=== PATIENT | female | born 1960 | race Caucasian/White ===

== ENCOUNTER 2018-09-11 09:39 | Outpatient (REF) | payer BC, SELFPAY ==
[2018-09-11 13:59] LABS: ALT 29 U/L (12-78); AST 25 U/L (15-37); Albumin 4.5 g/dL (3.4-5.0); Alkaline Phosphatase 77 U/L (46-116); Anion Gap 9.8 mmol/L (3-11); BUN 27 mg/dL (7-18); Bilirubin, Total 0.5 mg/dL (0.2-1.0); CO2 29.2 mmol/L (21.0-32.0); CREATININE 0.85 mg/dL (0.55-1.02); Calcium 9.3 mg/dL (8.5-10.1); Chloride 101 mmol/L (98-107); Cholesterol 224 mg/dL (50-200); Glucose 81 mg/dL (70-100); HDL Cholesterol 78 mg/dL (40-60); LDL CHOLESTEROL 135 mg/dL (<100); Potassium 4.3 mmol/L (3.5-5.1); Sodium 140 mmol/L (136-145); Total Protein 7.4 g/dL (6.4-8.2); Triglyceride 44 mg/dL (30-150)
== END 2018-09-11 09:59 ==
LOC: NCHCN 09:39
PROVIDERS: PCP Family Medicine; Visit Provider Family Medicine
DX: Z00.00 Encounter for general adult medical examination without abnormal findings (principal); E78.5 Hyperlipidemia, unspecified; Z78.0 Asymptomatic menopausal state
CPT/HCPCS: 80053; 80061; 83721

== ENCOUNTER 2019-04-06 00:53 | Outpatient (CLI) | payer BC, SELFPAY ==
--- NOTE | 2019-04-06 16:15 | DI.MAMMO_ITS ---
SYMPTOM/DIAGNOSIS: SCREENING, Z12.31 MAMMOGRAMS: Mammograms were interpreted according to the usual protocol including computer analysis with CAD system, tomosynthesis and C view imaging. The breast tissue is of moderate radiodensity. There is no evidence of a mass. There are no suspicious calcifications. There has been no significant interval change and no evidence of malignancy. Category 1. Yearly screening mammography is recommended. IMPRESSION: Category 1, yearly screening mammography is recommended. Breast density, Category B. MQSA ASSESSMENT OF FINDINGS: Negative. Category 1. Patient will receive a letter notifying them of these results. BI-RADS category B. There are scattered areas of fibroglandular density.
== END 2019-04-06 01:13 ==
PROVIDERS: PCP Family Medicine; Visit Provider Nurse Practitioner Family
DX: Z12.31 Encounter for screening mammogram for malignant neoplasm of breast (principal)
CPT/HCPCS: 77063; 77067

== ENCOUNTER 2019-08-26 09:08 | Outpatient (REF) | payer BC, SELFPAY ==
[2019-08-26 11:53] LABS: ALT 26 U/L (14-59); AST 22 U/L (15-37); Albumin 4.3 g/dL (3.4-5.0); Alkaline Phosphatase 72 U/L (46-116); Anion Gap 10.7 mmol/L (3-11); BUN 33 mg/dL (7-18); Bilirubin, Total 0.4 mg/dL (0.2-1.0); CO2 27.3 mmol/L (21.0-32.0); CREATININE 0.87 mg/dL (0.55-1.02); Calculated LDL 184 mg/dL; Chloride 104 mmol/L (98-107); Cholesterol 271 mg/dL (<200); Glucose 71 mg/dL (74-106); HDL Cholesterol 81 mg/dL (40-60); Potassium 4.3 mmol/L (3.5-5.1); Sodium 142 mmol/L (136-145); Total Protein 7.4 g/dL (6.4-8.2); Triglyceride 34 mg/dL (<150)
== END 2019-08-26 09:28 ==
LOC: NCHCN 09:08
PROVIDERS: PCP Family Medicine; Visit Provider Family Medicine
DX: E78.5 Hyperlipidemia, unspecified (principal); Z00.00 Encounter for general adult medical examination without abnormal findings; Z78.0 Asymptomatic menopausal state
CPT/HCPCS: 80053; 80061

== ENCOUNTER 2019-12-06 14:25 | Outpatient (REF) | payer BC, SELFPAY ==
--- NOTE | 2019-12-06 13:00 | PAPFT_PTH ---
PATIENT: Jennifer Hurley LOC: [facility] U#:[id number] AGE/SX: 59/F ROOM: RE12/06/[address]: JOAQUIN Diaz : 1960 BED: DIS: 12/06/2019 SPEC #: [id number] RECD: 12/06/19 17:43 STATUS: TOMAS REQ #: [id number] BOAZ: 12/06/19 13:[address]: Verena Wade DEPT: [facility] Cytology RECD BY: Miriam Gonzalez ENTERED: 12/06/19 17:43 SP TYPE: PAPFT OTHR DR: Olinda Mukherjee Tissues: 1 - CX/ENDOCX FOR PAP SMEARS Procedures: PAP THIN PREP/UVM Screening HPV DNA PROBE Comments: [id number]
== END 2019-12-06 14:45 ==
LOC: LBN 14:25
PROVIDERS: PCP Family Medicine; Visit Provider Nurse Practitioner Family
DX: Z12.4 Encounter for screening for malignant neoplasm of cervix (principal); Z11.51 Encounter for screening for human papillomavirus (HPV)
CPT/HCPCS: 88142; 87624

== ENCOUNTER 2020-04-07 03:46 | Outpatient (CLI) | payer BC, SELFPAY ==
--- NOTE | 2020-04-07 09:00 | DI.MAMMO_ITS ---
EXAM: MG MAMMO SCREENING CLINICAL HISTORY: screening,Z12.39 TECHNIQUE: Mammograms were interpreted according to the usual protocol including computer analysis w [employer] CAD system, tomosynthesis and C-view imaging. COMPARISON: FINDINGS: The breasts are of moderate density with fairly symmetrical distribution of fibroglandular tissue. N o dominant mass or clumped microcalcification is identified in either breast. The current examinatio n is compared with previous examinations including March 2019 and there has been no gross interval jordi nge in appearance comparison previous studies. IMPRESSION: No specific evidence of malignancy at this time. Routine screening examinations are suggested at yea rly intervals in this age group according to the ACS ACR guidelines. BI-RADS Category 1 - Negative Breast Density - Category B - Scattered areas of fibroglandular density
== END 2020-04-07 04:06 ==
PROVIDERS: PCP Family Medicine; Visit Provider Nurse Practitioner Family
DX: Z12.39 Encounter for other screening for malignant neoplasm of breast (principal); R92.2 Inconclusive mammogram
CPT/HCPCS: 77063; 77067

== ENCOUNTER 2020-05-03 09:33 | Outpatient (CLI) | payer BC, SELFPAY ==
--- NOTE | 2020-05-03 15:10 | DI.RAD_ITS ---
EXAM: XR WRIST LT COMPLETE CLINICAL HISTORY: tenosynovits. TECHNIQUE: 2D digital imaging was performed. COMPARISON: No exams were available for comparison FINDINGS: BONES: No acute fracture is present. No bony destructive lesion is seen. JOINTS: The carpal bones are normally aligned. SOFT TISSUE: Normal. IMPRESSION: Unremarkable radiographs of the left wrist. DATA REPOSITORY: RADIATION DOSE DELIVERED:
== END 2020-05-03 09:53 ==
PROVIDERS: PCP Family Medicine; Visit Provider Student in an Organized Health Care Education/Training Program
DX: M65.842 Other synovitis and tenosynovitis, left hand (principal)
CPT/HCPCS: 73110

== ENCOUNTER 2020-09-04 12:46 | Outpatient (REF) | payer BC, SELFPAY ==
[2020-09-04 21:23] LABS: HCT 38.9 % (36.0-46.0); HGB 12.5 g/dL (11.2-15.7); MCH 32.1 pg (27.0-33.0); MCHC 32.1 % (32.0-36.0); MCV 99.7 fL (80-95); MPV 12.1 fL (8.0-11.0); Platelet Count 237 10^3/uL (130-400); RDW 12.4 % (11.7-14.6); RDW-SD 45.8 fL
[2020-09-04 21:53] LABS: ALT 33 U/L (14-59); AST 32 U/L (15-37); Albumin 4.4 g/dL (3.4-5.0); Alkaline Phosphatase 75 U/L (46-116); Anion Gap 8.1 mmol/L (3-11); BUN 27 mg/dL (7-18); Bilirubin, Total 0.5 mg/dL (0.2-1.0); CO2 28.9 mmol/L (21.0-32.0); CREATININE 0.94 mg/dL (0.55-1.02); Calcium 9.1 mg/dL (8.5-10.1); Calculated LDL 97 mg/dL (<100); Chloride 104 mmol/L (98-107); Cholesterol 175 mg/dL (<200); Glucose 88 mg/dL (74-106); HDL Cholesterol 69 mg/dL (40-60); Potassium 4.2 mmol/L (3.5-5.1); Sodium 141 mmol/L (136-145); Total Protein 7.1 g/dL (6.4-8.2); Triglyceride 47 mg/dL (<150)
== END 2020-09-04 13:06 ==
LOC: NCHCN 12:46
PROVIDERS: PCP Family Medicine; Visit Provider Family Medicine
DX: Z00.00 Encounter for general adult medical examination without abnormal findings (principal); E78.5 Hyperlipidemia, unspecified
CPT/HCPCS: 80053; 80061; 85027

== ENCOUNTER 2021-02-14 15:15 | Outpatient (CLI) | payer BC, SELFPAY ==
--- NOTE | 2021-02-14 14:48 | DI.RAD_ITS ---
Exam(s) XR WRIST LT LIMITED EXAM: XR WRIST LT LIMITED CLINICAL HISTORY: left wrist pain. TECHNIQUE: 2D digital imaging was performed. COMPARISON: CR XR WRIST LT COMPLETE from 05/03/2020 FINDINGS: There is no evidence of fracture or dislocation on this two view study Bone density is age-appropriate. No significant ulnar variance. No radiopaque foreign body IMPRESSION: No fracture evident on this two view study. DATA REPOSITORY: RADIATION DOSE DELIVERED:
== END 2021-02-14 15:16 | disposition home or self-care (01) ==
LOC: DIORS 15:16
PROVIDERS: PCP Family Medicine; Referring Provider Family Medicine; Visit Provider Student in an Organized Health Care Education/Training Program
DX: M25.532 Pain in left wrist (principal)
CPT/HCPCS: 73100

== ENCOUNTER 2021-04-09 01:22 | Outpatient (CLI) | payer BC, SELFPAY ==
--- NOTE | 2021-04-09 06:30 | DI.MAMMO_ITS ---
Exam(s) MAMMO SCREENING EXAM: MAMMO SCREENING CLINICAL HISTORY: screening,Z12.39. TECHNIQUE: Bilateral full field digital CC and MLO mammographic images were obtained with 3D tomosyn thesis and utilizing computer aided detection (CAD). COMPARISON: Prior mammograms dating back to 2011, the most recent being March 2020. FINDINGS: There are no CAD designations There are no new spiculated masses nor malignant appearing microcalcification groups. There is no significant architectural distortion nor skin thickening-retraction. IMPRESSION: No radiographic evidence of malignancy. BI-RADS Category 1 - Negative Breast Density - Category B - Scattered areas of fibroglandular density Breast density Category C or D implies that the patient has dense breast tissue. Dense breast tissue can make it harder to find cancer on a mammogram. Dense breast tissue is also associated with an incr eased risk of breast cancer. This information about the result of the mammogram report was provided to the patient to raise their awareness. Use this report when you speak with the patient about their risks for breast cancer, which includes their family history. At that time, you may recommend additional screening tests (Ultrasoun d or MRI) as these tests may add significant information. A negative radiographic report should not delay biopsy if a dominant or clinically suspicious mass is present. Up to ten percent of cancers are not identified on mammography. A negative report may reinforce clinical impression. Adenosis and dense breasts may obscure an underlying neoplasm. False positive reports average 6 to 10%. Patient will receive a letter notifying them of these results.
== END 2021-04-09 01:42 ==
PROVIDERS: PCP Family Medicine; Visit Provider Nurse Practitioner Family
DX: Z12.31 Encounter for screening mammogram for malignant neoplasm of breast (principal); R92.8 Other abnormal and inconclusive findings on diagnostic imaging of breast
CPT/HCPCS: 77063; 77067

== ENCOUNTER 2021-09-06 11:26 | Outpatient (REF) | payer BC, SELFPAY ==
[2021-09-06 15:03] LABS: ALT 31 U/L (14-59); AST 25 U/L (15-37); Albumin 4.5 g/dL (3.4-5.0); Alkaline Phosphatase 73 U/L (46-116); Anion Gap 8.3 mmol/L (3-11); BUN 21 mg/dL (7-18); Bilirubin, Total 0.5 mg/dL (0.2-1.0); CO2 28.7 mmol/L (21.0-32.0); CREATININE 0.8 mg/dL (0.55-1.02); Calcium 9.2 mg/dL (8.5-10.1); Calculated LDL 87 mg/dL (<100); Chloride 103 mmol/L (98-107); Cholesterol 168 mg/dL (<200); Glucose 86 mg/dL (74-106); HDL Cholesterol 72 mg/dL (40-60); Potassium 4.3 mmol/L (3.5-5.1); Sodium 140 mmol/L (136-145); Total Protein 7.4 g/dL (6.4-8.2); Triglyceride 48 mg/dL (<150)
== END 2021-09-06 11:27 | disposition home or self-care (01) ==
LOC: NCHCN 11:26
PROVIDERS: PCP Family Medicine; Visit Provider Family Medicine
DX: Z00.00 Encounter for general adult medical examination without abnormal findings (principal); E78.5 Hyperlipidemia, unspecified
CPT/HCPCS: 80053; 80061

== ENCOUNTER → 2022-04-10 00:11 | Outpatient (CLI) | payer BC, SELFPAY ==
--- NOTE | 2022-04-10 15:15 | DI.MAMMO_ITS ---
Exam(s) MAMMO SCREENING EXAM: MAMMO SCREENING CLINICAL HISTORY: screening TECHNIQUE: Mammograms were interpreted according to the usual protocol including computer analysis w [employer] CAD system, tomosynthesis and C-view imaging. COMPARISON: 2012 through 2020 FINDINGS: The breasts are composed of scattered fibroglandular densities, Breast Density category B. No suspicious masses or suspicious microcalcifications are seen. No skin thickening or abnormal axillary lymph nodes are seen. There has been no significant change from prior exams. IMPRESSION: BI-RADS Category 1, Negative mammogram Yearly screening mammography is recommended. Breast Density - Category B, scattered fibroglandular densities. A negative radiographic report should not delay biopsy if a dominant or clinically suspicious mass is present. Up to ten percent of cancers are not identified on mammography. A negative report may reinforce clinical impression. Adenosis and dense breasts may obscure an underlying neoplasm. False positive reports average 6 to 10%. Patient will receive a letter notifying them of these results.
== END ==
PROVIDERS: PCP Family Medicine; Visit Provider Nurse Practitioner Family
DX: Z12.31 Encounter for screening mammogram for malignant neoplasm of breast (principal); R92.8 Other abnormal and inconclusive findings on diagnostic imaging of breast
CPT/HCPCS: 77063; 77067

== ENCOUNTER 2022-09-30 10:47 | Outpatient (REF) | payer BC, SELFPAY ==
[2022-09-30 14:38] LABS: Glucose 87 mg/dL (74-106)
== END 2022-09-30 10:48 | disposition home or self-care (01) ==
LOC: NCHCN 10:47
PROVIDERS: PCP Family Medicine; Visit Provider Internal Medicine
DX: Z00.00 Encounter for general adult medical examination without abnormal findings (principal)
CPT/HCPCS: 82947

== ENCOUNTER 2023-02-10 09:18 | Outpatient (REF) | payer BC, SELFPAY ==
--- NOTE | 2023-02-10 08:45 | PAPFT_PTH ---
PATIENT: Jennifer Hurley LOC: [facility] U#:[id number] AGE/SX: 62/F ROOM: RE02/10/[address]: Celsa Ford NP : 1960 BED: DIS: 02/10/2023 SPEC #: [id number] RECD: 02/10/23 13:03 STATUS: TOMAS REQ #: [id number] BOAZ: 02/10/23 08:[address]: Celsa Ford NP DEPT: [facility] Cytology RECD BY: Miriam Gonzalez ENTERED: 02/10/23 13:03 SP TYPE: PAPFT OTHR DR: Olinda Mukherjee Tissues: 1 - CX/ENDOCX FOR PAP SMEARS Procedures: PAP THIN PREP/UVM Screening HPV DNA PROBE Comments: [id number]
== END 2023-02-10 09:19 | disposition home or self-care (01) ==
LOC: LBN 09:18
PROVIDERS: PCP Family Medicine; Visit Provider Nurse Practitioner Women's Health
DX: Z12.4 Encounter for screening for malignant neoplasm of cervix (principal); Z11.51 Encounter for screening for human papillomavirus (HPV)
CPT/HCPCS: 88142; 87624

== ENCOUNTER 2023-04-28 00:24 | Outpatient (CLI) | payer BC, SELFPAY ==
--- NOTE | 2023-04-28 16:30 | DI.MAMMO_ITS ---
Exam(s) MAMMO SCREENING EXAM: MAMMO SCREENING CLINICAL HISTORY: screening TECHNIQUE: Mammograms were interpreted according to the usual protocol including computer analysis w [employer] CAD system, tomosynthesis and C-view imaging. COMPARISON: 2013 through 2021 FINDINGS: The breasts are composed of scattered fibroglandular densities, Breast Density category B. No suspicious masses or suspicious microcalcifications are seen. No skin thickening or abnormal axillary lymph nodes are seen. There has been no significant change from prior exams. IMPRESSION: BI-RADS Category 1, Negative mammogram Yearly screening mammography is recommended. Breast Density - Category B, scattered fibroglandular densities. A negative radiographic report should not delay biopsy if a dominant or clinically suspicious mass is present. Up to ten percent of cancers are not identified on mammography. A negative report may reinforce clinical impression. Adenosis and dense breasts may obscure an underlying neoplasm. False positive reports average 6 to 10%. Patient will receive a letter notifying them of these results.
== END 2023-04-28 00:44 ==
LOC: DI 00:24
PROVIDERS: PCP Family Medicine; Visit Provider Nurse Practitioner Women's Health
DX: Z12.31 Encounter for screening mammogram for malignant neoplasm of breast (principal)
CPT/HCPCS: 77063; 77067

== ENCOUNTER 2023-10-16 10:25 | Outpatient (REF) | payer BC, SELFPAY ==
[2023-10-16 15:04] LABS: ALT 47 U/L (14-59); AST 34 U/L (15-37); Albumin 4.1 g/dL (3.4-5.0); Alkaline Phosphatase 74 U/L (46-116); Anion Gap 6.2 mmol/L (3-11); BUN 22 mg/dL (7-18); Bilirubin, Total 0.6 mg/dL (0.2-1.0); CO2 31.8 mmol/L (21.0-32.0); CREATININE 0.8 mg/dL (0.55-1.02); Calculated LDL 86 mg/dL (<100); Chloride 104 mmol/L (98-107); Cholesterol 170 mg/dL (<200); Estimated GFR 83.26 (mL/min/1.73m2); Glucose 90 mg/dL (74-106); HDL Cholesterol 77 mg/dL (40-60); Potassium 4.5 mmol/L (3.5-5.1); Sodium 142 mmol/L (136-145); Total Protein 7.2 g/dL (6.4-8.2); Triglyceride 38 mg/dL (<150)
== END 2023-10-16 10:26 | disposition home or self-care (01) ==
LOC: NCHCN 10:25
PROVIDERS: PCP Family Medicine; Visit Provider Family Medicine
DX: Z00.00 Encounter for general adult medical examination without abnormal findings (principal); E78.5 Hyperlipidemia, unspecified
CPT/HCPCS: 80053; 80061

== ENCOUNTER → 2023-12-05 01:26 | Outpatient (CLI) | payer BC, SELFPAY ==
--- NOTE | 2023-12-05 12:38 | DI.RAD_ITS ---
Exam(s) XR KNEE RT 3V AP,LAT,BLANQUITA EXAM: XR KNEE RT 3V AP,LAT,BLANQUITA CLINICAL HISTORY: PAIN RT KNEE REGION, M25.561. TECHNIQUE: 2D digital imaging was performed. Three views. COMPARISON: No exams were available for comparison FINDINGS: BONES: No acute fracture is present. No bony destructive lesion is seen. JOINTS: The knee is normally aligned. No joint effusion is seen. The joint spaces are maintained. Minimal periarticular spurring. SOFT TISSUE: Normal. IMPRESSION: Minimal degenerative changes. DATA REPOSITORY: RADIATION DOSE DELIVERED:
== END ==
PROVIDERS: PCP Family Medicine; Visit Provider Family Medicine
DX: M25.561 Pain in right knee (principal)
CPT/HCPCS: 73562

== ENCOUNTER 2024-05-10 01:57 | Outpatient (CLI) | payer BC, SELFPAY ==
--- NOTE | 2024-05-10 12:15 | DI.MAMMO_ITS ---
Exam(s) MAMMO SCREENING EXAM: MAMMO SCREENING CLINICAL HISTORY: screening TECHNIQUE: Mammograms were interpreted according to the usual protocol including computer analysis w [employer] CAD system, tomosynthesis and C-view imaging. COMPARISON: 2014 through 2022 FINDINGS: The breasts are composed of scattered fibroglandular densities, Breast Density category B. No suspicious masses or suspicious microcalcifications are seen. No skin thickening or abnormal axillary lymph nodes are seen. There has been no significant change from prior exams. IMPRESSION: BI-RADS Category 1, Negative mammogram Yearly screening mammography is recommended. Breast Density - Category B, scattered fibroglandular densities. A negative radiographic report should not delay biopsy if a dominant or clinically suspicious mass is present. Up to ten percent of cancers are not identified on mammography. A negative report may reinforce clinical impression. Adenosis and dense breasts may obscure an underlying neoplasm. False positive reports average 6 to 10%. Patient will receive a letter notifying them of these results.
== END 2024-05-10 02:17 ==
LOC: DI 01:57
PROVIDERS: PCP Family Medicine; Visit Provider Nurse Practitioner Women's Health
DX: Z12.31 Encounter for screening mammogram for malignant neoplasm of breast (principal)
CPT/HCPCS: 77063; 77067

== ENCOUNTER 2024-09-30 11:21 | Emergency (ER) | payer BC, SELFPAY ==
[2024-09-30] VITALS (44 sets, daily range): BP systolic 83–121; BP diastolic 42–61; PULSE 64–93; RESP 15–34; TEMP 37.3; O2SAT 93–99
--- NOTE | 2024-09-30 11:15 | RT.EKG_ITS ---
APPROVED REPORT Exam: Resting ECG Reason for Exam: syncope Patient Location: E HR:75 bpm ECG Measurements Heart Rate 75 AXIS VT 125 P 76 QRSd 75 QRS 75 QT 392 T 79 QTc 439 Conclusion Sinus rhythm 75 normal axis no stemi
--- NOTE | 2024-09-30 11:15 | DI.CT_ITS ---
Exam(s) CT HEAD CERVICAL SPINE WO EXAM: CT HEAD CERVICAL SPINE WO CLINICAL HISTORY: fall, head trauma. TECHNIQUE: Imaging Protocol: Axial computed tomography images with coronal and sagittal reformatted images were created and reviewed COMPARISON: No exams were available for comparison FINDINGS: CT Head: Ventricles and Extra axial spaces: Normal in size and morphology for the patient's age. Hemorrhage: None. Cerebral parenchyma: No evidence of an acute territorial infarct. Midline shift: None. Brainstem/Cerebellum: Normal. Calvarium: Normal. Visualized Paranasal sinuses/Mastoids: Clear. Soft Tissues: There is soft tissue swelling overlying the right parietal bone. CT Cervical Spine: Bones: No acute fracture or subluxation. Age-appropriate degenerative changes are seen in the cervica l spine. There is straightening of the normal cervical lordosis. This may be due to muscle spasm or patient positioning. Soft Tissues: Unremarkable. Lung Apices: Clear. IMPRESSION: 1. No acute intracranial process. 2. No acute fracture or subluxation in the cervical spine. RADIATION DOSE DELIVERED: 1,130.29mGy.cm Total DLP DATA REPOSITORY: All CT scans at this facility are submitted to the National Radiology Data Registry (NRDR) Dose Index Registry (DIR) with the [employer] (ACR). RADIATION OPTIMIZATION: All CT scans at this facility use at least one of these dose optimization te chniques: automated exposure control; mA and/or kV adjustment per patient size (includes targeted exa ms where dose is matched to clinical indication); or iterative reconstruction.
[2024-09-30 11:46] LABS: BE (Venous) 4 mmol/L (-2-3); HCO3 (Venous) 29 mmol/L (23-28); O2 Sat (Venous) 57 %; TCO2 (Venous) 26 mmol/L (24-29); pCO2 (Venous) 46 mmHg (41-51); pO2 (Venous) 30 mmHg
[2024-09-30 11:48] LABS: Abs Immature Grans 0.03 10^3/uL (0.0-0.06); Absolute Basophil Count 0.03 10^3/uL (0.0-0.2); Absolute Eosinophil Count 0.01 10^3/uL (0.0-0.7); Absolute Lymphocyte Count 0.49 10^3/uL (1.2-3.4); Absolute Monocyte Count 0.78 10^3/uL (0.1-0.8); Absolute Neutrophil Count 8.36 10^3/uL (1.2-6.7); Basophils % 0.3 %; Eosinophils % 0.1 %; HCT 37.5 % (36.0-46.0); HGB 12.6 g/dL (11.2-15.7); Immature Grans % 0.3 %; Lymphocytes % 5.1 %; MCH 31.7 pg (27.0-33.0); MCHC 33.6 % (32.0-36.0); MCV 95 fL (80-95); MPV 10.2 fL (8.0-11.0); Neutrophils % 86.2 %; Platelet Count 228 10^3/uL (130-400); RBC 3.97 10^6/uL (3.93-5.22); RDW 12.8 % (11.7-14.6); RDW-SD 44.8 fL
[2024-09-30] MEDS: Lidocaine/Epinephri/Tetracaine Topical Gel 3 ML TP (12:19)
[2024-09-30 12:20] LABS: ALT 41 U/L (14-59); AST 36 U/L (15-37); Alkaline Phosphatase 88 U/L (46-116); Anion Gap 9.3 mmol/L (3-11); BUN 13 mg/dL (7-18); Bilirubin, Total 0.63 mg/dL (0.2-1.0); CO2 28.7 mmol/L (21.0-32.0); Calcium 9.1 mg/dL (8.5-10.1); Chloride 100 mmol/L (98-107); Glucose 114 mg/dL (74-106); Potassium 3.8 mmol/L (3.5-5.1); Sodium 138 mmol/L (136-145); Total Protein 7.7 g/dL (6.4-8.2)
[2024-09-30] MEDS: Normal Saline 1,000 ML 1000 ML IV (12:41)
--- NOTE | 2024-09-30 14:36 | ED.GENADUL_ITS ---
Discharge Plan Disposition Patient Disposition: Home Discharge Details Clinical Impression: COVID, Hypotension, Syncope, vasovagal, Laceration of scalp Primary Care Provider: Olinda Mukherjee ED Provider: Suzie Plascencia Home Meds and New Rx's Prescriptions: New Paxlovid 300 mg (150 mg x 2)-100 mg tablets,dose pack See Rx Instructions .ROUTE .COMPLEX Qty: 30 0RF Rx Instructions: take TWO 150 mg tablets of nirmatrelvir with ONE 100 mg tablet of ritonavir twice daily for 5 days No Action multivitamin Tablet 1 tab PO DAILY atorvastatin 20 mg tablet 20 mg PO DAILY clobetasol-emollient 0.05 % cream 1 g topical PRN Patient Comments: rarely uses Discharge Instructions Additional Instructions: A prescription for Paxlovid has been sent to your pharmacy. Please start this m edication. While taking this medication, you should stop taking your atorvastatin. Please resume taking your atorvastatin when you have completed taking Paxlovid. You have 1 staple in your scalp. Please keep the area clean with soap and water. Can shampoo normally. Do not scrub the area with the staple. This staple should be removed in 7 to 10 days and can be taken out at your primary care office, urgent care or the emergency department Please make sure to increase fluid intake and electrolytes like Gatorade or Pedialyte. Use caution when going from sitting to standing positions as your blood pressure may drop. HPI General Date/Time Provider Initiated Documentation: 09/30/24 11:27 . Limitations to Documentation: no limitations . Information obtained by: patient and EMS . HPI Narrative: 64-year-old female with out significant past medical history presents via EMS for evaluation after 2 syncopal episodes. Patient reports that she started feeling bad yesterday and took a home COVID test because her tested positive for COVID earlier this week. She reports that her home test was positive. She reports that she has been having some fatigue, cough, lightheadedness. Has been also having nausea without vomiting or diarrhea. She has also been having fever. She reports that last night she went to the bathroom and felt very lightheaded and fell. It is clear that she lost consciousness. She went back to bed but noted again this morning that she had an additional episode of falling. She did not strike her head noted that there was bleeding. Because of that she contacted EMS for transport to the hospital. She reports some mild pain in her head. She denies any blood thinner use. She denies any numbness tingling or weakness. Denies any neck pain. Related Data Home Medications ?Medication ?Instructions ?Recorded ?Confirmed atorvastatin 20 mg tablet 20 mg PO DAILY 12/06/19 09/30/24 multivitamin 1 tab PO DAILY 05/03/20 09/30/24 clobetasol-emollient 0.05 % 1 g topical PRN 09/30/24 09/30/24 topical cream nirmatrelvir 300 mg (150 mg See Rx Instructions PO .COMPLEX 09/30/24 x2)-ritonavir 100 mg tablet,dose #30 dose pk pack (Paxlovid) Previous Rx's ?Medication ?Instructions ?Recorded nirmatrelvir 300 mg (150 mg See Rx Instructions PO .COMPLEX 09/30/24 x2)-ritonavir 100 mg tablet,dose #30 dose pk pack (Paxlovid) Allergies Allergy/AdvReac Type Severity Reaction Status Date / Time No Known Allergies Allergy Verified 09/30/24 11:22 General Stated Complaint: Dizzy/Sync TESS: 3 Exam Narrative Exam Narrative: Review of Systems: All systems reviewed & are unremarkable except as noted in HPI and below Well-developed, no acute distress Afebrile 1 cm laceration on right parietal scalp, no skull deformity, no active bleeding No midline C-spine tenderness PERRL, normal conjunctiva RRR Unlabored respiratory effort clear bilaterally Nondistended abdomen soft nontender no focal neurologic deficits Course Vital Signs Vital signs: Vital Signs Temperature 37.3 C 09/30/24 11:17 Pulse 92 H 09/30/24 11:17 Respiratory Rate 18 09/30/24 11:17 Blood Pressure 111/61 09/30/24 11:17 Pulse Oximetry 95 09/30/24 11:17 Temperature 37.3 C 09/30/24 11:17 Pulse 69 09/30/24 14:33 Pulse 76 09/30/24 14:22 Respiratory Rate 25 H 09/30/24 14:22 Respiratory Effort Normal, Non-Labored 09/30/24 11:40 Respiratory Depth Normal 09/30/24 11:40 Respiratory Pattern Normal 09/30/24 11:40 Blood Pressure 106/45 L 09/30/24 14:33 Blood Pressure Mean 65 09/30/24 14:22 Pulse Oximetry 98 09/30/24 14:22 Oxygen Delivery Method Room Air 09/30/24 11:17 Oxygen Flow Rate 0 09/30/24 11:17 Comment aware of BP 09/30/24 14:22 Lab/Test Results Lab/Test Results: Laboratory Tests Range/Units 09/30/24 11:40 WBC (4.4-10.8) 10^3/uL 9.70 RBC (3.93-5.22) 10^6/uL 3.97 Hgb (11.2-15.7) g/dL 12.6 Hct (36.0-46.0) % 37.5 MCV (80-95) fL 95 MCH (27.0-33.0) pg 31.7 MCHC (32.0-36.0) % 33.6 RDW (11.7-14.6) % 12.8 Plt Count (130-400) 10^3/uL 228 MPV (8.0-11.0) fL 10.2 Immature Gran % % 0.3 Neutrophils % % 86.2 Lymphocytes % % 5.1 Monocytes % % 8.0 Eosinophils % % 0.1 Basophils % % 0.3 Nucleated RBC % (0.0-0.3) % 0.0 Absolute Neutrophils (1.2-6.7) 10^3/uL 8.36 H Absolute Lymphocytes (1.2-3.4) 10^3/uL 0.49 L Absolute Monocytes (0.1-0.8) 10^3/uL 0.78 Absolute Eosinophils (0.0-0.7) 10^3/uL 0.01 Absolute Basophils (0.0-0.2) 10^3/uL 0.03 VBG pH (7.31-7.41) 7.40 VBG pCO2 (41-51) mmHg 46 VBG pO2 mmHg 30 VBG HCO3 (23-28) mmol/L 29 H VBG Total CO2 (24-29) mmol/L 26 VBG O2 Saturation % 57 VBG Base Excess (-2-3) mmol/L 4 H Sodium (136-145) mmol/L 138 Potassium (3.5-5.1) mmol/L 3.8 Chloride (98-107) mmol/L 100 Carbon Dioxide (21.0-32.0) mmol/L 28.7 Anion Gap (3-11) mmol/L 9.3 BUN (7-18) mg/dL 13 Creatinine (0.55-1.02) mg/dL 1.0 Est GFR (CKD-EPI 2020) (mL/min/1.73m2) 63.30 Glucose (74-106) mg/dL 114 H Calcium (8.5-10.1) mg/dL 9.1 Total Bilirubin (0.2-1.0) mg/dL 0.63 AST (15-37) U/L 36 ALT (14-59) U/L 41 Alkaline Phosphatase (46-116) U/L 88 Total Protein (6.4-8.2) g/dL 7.7 Albumin (3.4-5.0) g/dL 4.0 Medical Decision Making Emergent evaluation of syncope. Unclear if patient truly lost consciousness, but did have 2 episodes of falling. The patient tested positive for COVID at home and is also COVID-positive. The patient is not having any respiratory symptoms of concern significant concern. Although she has normal nonfocal neurologic exam and is not on blood thinners, will obtain a head CT with C-spine imaging given her falls. Orthostatic vital signs were obtained and I am concerned regarding the significant change. The patient reports chronically low blood pressure which seems to be worsened by her poor oral intake due to this illness. Will resuscitate with IV fluids Lab work obtained. No leukocytosis or anemia. Her VBG does not indicate a significant respiratory derangement. Her electrolytes are without derangement. Renal function is within normal limits. An EKG was obtained and independently interpreted: Sinus 75 normal axis no STEMI. Her head CT and C-spine CT were reviewed and there is no acute abnormality there. The laceration was repaired without complication using 1 staple. Wound care discussed with the patient. Given her age, she does qualify for Paxlovid and a prescription has been sent to the pharmacy. I have advised that she stop taking the atorvastatin while she is taking the Paxlovid given the interactions strict return precautions advised. Recommend close follow-up with PCP. Guidance regarding aggressive oral hydration discussed with the patient. I do also recommend great care when moving from positions. Repeat evaluation of orthostatic vital signs revealed some improvement in her blood pressure drop. And while the blood pressure did drop slightly, the patient remained asymptomatic. At this time she is stable for discharge home. Return precautions advised. Quality:SDOH Health Related Social Needs: Health related social needs housing instability, house d, with risk of homelessness (Z59.811) PFSH All Active Problems Laceration of scalp (Acute) Syncope, vasovagal (Acute) Hypotension (Acute) COVID (Acute) De Quervain's tenosynovitis, left (Acute) Elevated lipids (Acute) Lichen sclerosus et atrophicus (Acute 07/30/11) Family History Father Diabetes Heart disease Grandmother Breast cancer [facility] [place] Social History Smoking/Tobacco Use Status: Former Tobacco Use Smoking risk assessment performed?: Yes Alcohol Intake: former Substance use type: does not use Housing: house current occupation: [employer] Current gender identity: female Do you feel safe at home: Yes Do you feel safe in your relationship?: Yes Female Reproductive History Menstrual Menopause type: natural History History 2 Para 2 Hx # Term Pregnancies Multiple births Hx # Pregnancies Ectopic pregnancies AB induced Hx Number of Living Children AB spontaneous
== END 2024-09-30 15:09 | disposition home or self-care (01) ==
PROVIDERS: Emergency Provider Emergency Medicine; PCP Family Medicine
DX: U07.1 COVID-19 (principal); I95.9 Hypotension, unspecified; R55 Syncope and collapse; S01.01XA Laceration without foreign body of scalp, initial encounter; W19.XXXA Unspecified fall, initial encounter; Z59.811 Housing instability, housed, with risk of homelessness
CPT/HCPCS: 12011; 36415; 80053; 82805; 93005; 96360; 99285; 70450; 72125; 85025; 93010; 99284

== ENCOUNTER 2024-10-19 10:18 | Outpatient (REF) | payer BC, SELFPAY ==
[2024-10-19 15:19] LABS: HCT 37.8 % (36.0-46.0); HGB 12.5 g/dL (11.2-15.7); MCH 31.9 pg (27.0-33.0); MCHC 33.1 % (32.0-36.0); MCV 96 fL (80-95); MPV 11.8 fL (8.0-11.0); Platelet Count 255 10^3/uL (130-400); RBC 3.92 10^6/uL (3.93-5.22); RDW-SD 46.5 fL; WBC 4.48 10^3/uL (4.4-10.8)
[2024-10-19 16:48] LABS: ALT 36 U/L (14-59); Albumin 4.2 g/dL (3.4-5.0); Alkaline Phosphatase 76 U/L (46-116); Anion Gap 7.6 mmol/L (3-11); BUN 17 mg/dL (7-18); Bilirubin, Total 0.46 mg/dL (0.2-1.0); CO2 29.4 mmol/L (21.0-32.0); CREATININE 0.8 mg/dL (0.55-1.02); Calcium 9.1 mg/dL (8.5-10.1); Calculated LDL 93 mg/dL (<100); Chloride 105 mmol/L (98-107); Cholesterol 180 mg/dL (<200); Estimated GFR 82.74 (mL/min/1.73m2); Glucose 84 mg/dL (74-106); HDL Cholesterol 78 mg/dL (40-60); Potassium 4.3 mmol/L (3.5-5.1); Sodium 142 mmol/L (136-145); Total Protein 7.3 g/dL (6.4-8.2); Triglyceride 47 mg/dL (<150)
[2024-10-19 16:57] LABS: AST 32 U/L (15-37)
== END 2024-10-19 10:19 | disposition home or self-care (01) ==
LOC: NCHCN 10:18
PROVIDERS: PCP Family Medicine; Visit Provider Family Medicine
DX: Z00.00 Encounter for general adult medical examination without abnormal findings (principal); E78.5 Hyperlipidemia, unspecified
CPT/HCPCS: 80053; 80061; 85027

== ENCOUNTER 2025-05-12 08:04 | Outpatient (CLI) | payer BC, SELFPAY ==
--- NOTE | 2025-05-12 15:45 | DI.MAMMO_ITS ---
Exam(s) MAMMO SCREENING EXAM: MAMMO SCREENING CLINICAL HISTORY: screening. TECHNIQUE: Bilateral full field digital CC and MLO mammographic images were obtained with 3D tomosynthesis and utilizing computer aided detection (CAD). COMPARISON: Prior mammograms were reviewed. FINDINGS: There has been no significant change in the appearance and distribution of the fibroglandular tissue. There are no CAD designations. There are no new spiculated masses nor malignant appearing microcalcification groups. There is no significant architectural distortion nor skin thickening-retraction. IMPRESSION: No radiographic evidence of malignancy. BI-RADS Category 1 - Negative Breast Density - Category B - There are scattered areas of fibroglandular density. Breast density Category C or D implies that the patient has dense breast tissue. Dense breast tissue can make it harder to find cancer on a mammogram. Dense breast tissue is also associated with an increased risk of breast cancer. This information about the result of the mammogram report was provided to the patient to raise their awareness. Use this report when you speak with the patient about their risks for breast cancer, which includes their family history. At that time, you may recommend additional screening tests (Ultrasound or MRI) as these tests may add significant information. A negative radiographic report should not delay biopsy if a dominant or clinically suspicious mass is present. Up to ten percent of cancers are not identified on mammography. A negative report may reinforce clinical impression. Adenosis and dense breasts may obscure an underlying neoplasm. False positive reports average 6 to 10%. Patient will receive a letter notifying them of these results.
== END 2025-05-12 08:24 ==
LOC: DI 08:05
PROVIDERS: PCP Family Medicine; Visit Provider Nurse Practitioner Women's Health
DX: Z12.31 Encounter for screening mammogram for malignant neoplasm of breast (principal); R92.323 Mammographic fibroglandular density, bilateral breasts
CPT/HCPCS: 77063; 77067